=== PATIENT | female | born 1975 | race Caucasian/White ===

== ENCOUNTER → 2018-06-08 | Outpatient (CLI) | payer BC ==
--- NOTE | 2018-06-08 13:36 | RADIOLOGY REPORT (SQ) ---
EXAM DESCRIPTION: CHEST PA/LATERAL COMPLETED DATE/TIME: 06/08/2018 12:05 pm REASON FOR STUDY: COUGH COMPARISON: None. NUMBER OF VIEWS: Two view. TECHNIQUE: Frontal and lateral radiographic views of the chest acquired. LIMITATIONS: None. FINDINGS: LUNGS AND PLEURA: Hyperinflation. Minimal interstitial change that could be related to C OPD. Lungs otherwise clear. MEDIASTINUM AND HILAR STRUCTURES: No masses or contour abnormalities. HEART AND VASCULATURE: Heart normal size. No evidence for failure. BONY STRUCTURES: No acute findings. HARDWARE: None. OTHER: No other significant finding. IMPRESSION: COPD. Minimal probably chronic interstitial change. TECHNICAL DOCUMENTATION: JOB ID: [id number] [employer]- All Rights Reserved Reading location - IP/workstation name: [email or web address]
== END ==
LOC: OD 11:53
PROVIDERS: ATTEND Nurse Practitioner Family
DX: J44.9 Chronic obstructive pulmonary disease, unspecified (principal); R05 Cough
CPT/HCPCS: 71046

== ENCOUNTER → 2018-12-20 | Outpatient (CLI) | payer BC ==
--- NOTE | 2018-12-20 16:22 | WOMENS IMAGING REPORT ---
EXAM DESCRIPTION: BILAT SCREENING MAMMO W/CAD COMPLETED DATE/TIME: 12/20/2018 3:42 pm REASON FOR STUDY: Z12.31 SCREENING UJAEOB23.31 ENCNTR SCREEN MAMMOGRAM FOR MALIGNANT NEOPLASM OF BR E COMPARISON: Bilateral mammograms 07/07/2017, Kel Gusman (maiden name Katie Siddiqui) EXAM PARAMETERS: Standard craniocaudal and mediolateral oblique views of each breast recorded using digital acquisition. Read with the assistance of CAD. [facility] - [employer] Version 9.2 LIMITATIONS: None. FINDINGS: RIGHT BREAST MASSES: Nodule versus superimposed shadows right breast upper outer quadrant 7 to 8 cm from the nippl e. This requires further evaluation with cone compression views, 90 mediolateral view, and right br east ultrasound. CALCIFICATIONS: No new or suspicious calcifications. ARCHITECTURAL DISTORTION: None. DEVELOPING DENSITY: None. ASYMMETRY: None noted. OTHER: No other significant findings. LEFT BREAST MASSES: No suspicious masses. CALCIFICATIONS: No new or suspicious calcifications. ARCHITECTURAL DISTORTION: None. DEVELOPING DENSITY: None. ASYMMETRY: None noted. OTHER: No other significant findings. IMPRESSION: Nodule versus superimposed shadows upper outer quadrant right breast for which additiona l diagnostic mammograms and ultrasound are recommended. No mammographic evidence for malignancy left breast. 0 Incomplete: Needs Additional Imaging Evaluation and/or prior Mammograms for Comparison. BREAST DENSITY: c. The breasts are heterogeneously dense, which may obscure small masses. BIRAD: ASSESSMENT: 0 Incomplete: Needs Additional Imaging Evaluation and/or prior Mammograms for C omparison. RECOMMENDATION: RECOMMENDED FOLLOW-UP: Additional right breast diagnostic mammograms and ultrasound The patient will be contacted for additional imaging. COMMENT: The patient has been notified of the results by letter per MQSA requirements. Additional no tification policies are in place for contacting patient with suspicious or incomplete findings. Quality ID #225: The [employer] recommends an annual screening mammogram for women aged 40 years or over. This facility utilizes a reminder system to ensure that all patients receive reminder letters, and/or direct phone calls for appointments. This includes reminders for routine scr eening mammograms, diagnostic mammograms, or other Breast Imaging Interventions when appropriate. Th is patient will be placed in the appropriate reminder system. TECHNICAL DOCUMENTATION: FINDING NUMBER: (1) ASSESSMENT: (1) JOB ID: [id number] [employer]- All Rights Reserved Reading location - IP/workstation name: [email or web address]
== END ==
LOC: WI 15:27
PROVIDERS: ATTEND Nurse Practitioner Family
DX: Z12.31 Encounter for screening mammogram for malignant neoplasm of breast (principal); R92.2 Inconclusive mammogram
CPT/HCPCS: 77067

== ENCOUNTER → 2019-01-04 | Outpatient (CLI) | payer BC ==
--- NOTE | 2019-01-04 13:33 | WOMENS IMAGING REPORT ---
EXAM DESCRIPTION: RIGHT DIAGNOSTIC MAMMO W/CAD; U/S BREAST UNILAT LIMITED COMPLETED DATE/TIME: 01/04/2019 8:32 am; 01/04/2019 8:49 am REASON FOR STUDY: N63.11 UNSPECIFIED LUMP IN THE RIGHT BREAST, UPPER OUTER QUADRANT; RT BREAST DENSI TY N63.11 UNSPECIFIED LUMP IN THE RIGHT BREAST, UPPER OUTER VINCE COMPARISON: 12/20/2018 EXAM PARAMETERS: Cone compression craniocaudal and mediolateral oblique images of the breast recorde d with digital acquisition. Right whole breast 90 mediolateral view. Right breast ultrasound was also performed. Read with the assistance of CAD. .[facility] - R2 [employer] Version 9.2 LIMITATIONS: None. FINDINGS: BREAST LATERALITY: Right MASSES: No suspicious masses. CALCIFICATIONS: No new or suspicious calcifications. ARCHITECTURAL DISTORTION: None. DEVELOPING DENSITY: None. ASYMMETRY: None noted. OTHER: No other significant findings. Right breast ultrasound: Ultrasound of the right breast upper outer quadrant was performed in the upper outer quadrant. Benig n dense fibroglandular tissue is present without discrete cystic or solid lesion. No dilated ducts. No worrisome acoustic absorption. No focal findings. IMPRESSION: No mammographic or sonographic evidence malignancy right breast BREAST DENSITY: d. The breasts are extremely dense, which lowers the sensitivity of mammography. BIRAD: ASSESSMENT: 1 Negative. RECOMMENDATION: RECOMMENDED FOLLOW UP: Please continue yearly bilateral screening mammography/ tomos ynthesis in January 2020. SPECIFIC INTERVENTION/IMAGING/CONSULTATION RECOMMENDED:No additional intervention/ imaging/consultati on needed at this time. COMMUNICATION:The negative/benign results were communicated to the patient. COMMENT: The patient has been notified of the results by letter per MQSA requirements. Additional no tification policies are in place for contacting patient with suspicious or incomplete findings. Quality ID #225: The [employer] recommends an annual screening mammogram for women aged 40 years or over. This facility utilizes a reminder system to ensure that all patients receive reminder letters, and/or direct phone calls for appointments. This includes reminders for routine scr eening mammograms, diagnostic mammograms, or other Breast Imaging Interventions when appropriate. Th is patient will be placed in the appropriate reminder system. TECHNICAL DOCUMENTATION: FINDING NUMBER: (1) ASSESSMENT: (1) JOB ID: [id number] [employer]- All Rights Reserved Reading location - IP/workstation name: [email or web address], [facility]-
--- NOTE | 2019-01-04 13:33 | WOMENS IMAGING REPORT ---
EXAM DESCRIPTION: RIGHT DIAGNOSTIC MAMMO W/CAD; U/S BREAST UNILAT LIMITED COMPLETED DATE/TIME: 01/04/2019 8:32 am; 01/04/2019 8:49 am REASON FOR STUDY: N63.11 UNSPECIFIED LUMP IN THE RIGHT BREAST, UPPER OUTER QUADRANT; RT BREAST DENSI TY N63.11 UNSPECIFIED LUMP IN THE RIGHT BREAST, UPPER OUTER VINCE COMPARISON: 12/20/2018 EXAM PARAMETERS: Cone compression craniocaudal and mediolateral oblique images of the breast recorde d with digital acquisition. Right whole breast 90 mediolateral view. Right breast ultrasound was also performed. Read with the assistance of CAD. .[facility] - R2 Program Checker Version 9.2 LIMITATIONS: None. FINDINGS: BREAST LATERALITY: Right MASSES: No suspicious masses. CALCIFICATIONS: No new or suspicious calcifications. ARCHITECTURAL DISTORTION: None. DEVELOPING DENSITY: None. ASYMMETRY: None noted. OTHER: No other significant findings. Right breast ultrasound: Ultrasound of the right breast upper outer quadrant was performed in the upper outer quadrant. Benig n dense fibroglandular tissue is present without discrete cystic or solid lesion. No dilated ducts. No worrisome acoustic absorption. No focal findings. IMPRESSION: No mammographic or sonographic evidence malignancy right breast BREAST DENSITY: d. The breasts are extremely dense, which lowers the sensitivity of mammography. BIRAD: ASSESSMENT: 1 Negative. RECOMMENDATION: RECOMMENDED FOLLOW UP: Please continue yearly bilateral screening mammography/ tomos ynthesis in January 2020. SPECIFIC INTERVENTION/IMAGING/CONSULTATION RECOMMENDED:No additional intervention/ imaging/consultati on needed at this time. COMMUNICATION:The negative/benign results were communicated to the patient. COMMENT: The patient has been notified of the results by letter per MQSA requirements. Additional no tification policies are in place for contacting patient with suspicious or incomplete findings. Quality ID #225: The [employer] recommends an annual screening mammogram for women aged 40 years or over. This facility utilizes a reminder system to ensure that all patients receive reminder letters, and/or direct phone calls for appointments. This includes reminders for routine scr eening mammograms, diagnostic mammograms, or other Breast Imaging Interventions when appropriate. Th is patient will be placed in the appropriate reminder system. TECHNICAL DOCUMENTATION: FINDING NUMBER: (1) ASSESSMENT: (1) JOB ID: [id number] [employer]- All Rights Reserved Reading location - IP/workstation name: [email or web address]-
== END ==
LOC: WI 07:52
PROVIDERS: ATTEND Nurse Practitioner Family
DX: N63.11 Unspecified lump in the right breast, upper outer quadrant (principal)
CPT/HCPCS: 76642

== ENCOUNTER → 2019-03-26 | Outpatient (CLI) | payer BC ==
--- NOTE | 2019-03-26 16:05 | RADIOLOGY REPORT (SQ) ---
EXAM DESCRIPTION: U/S NON-OB PELVIS TV W/O DOP COMPLETED DATE/TIME: 03/26/2019 3:45 pm REASON FOR STUDY: R10.2 PELVIC AND PERINEAL PAIN R10.2 PELVIC AND PERINEAL PAIN COMPARISON: None. TECHNIQUE: Dynamic and static grayscale images acquired of the pelvis via transvaginal approach and recorded on PACS. Additional selected color Doppler and spectral images recorded. LIMITATIONS: None. FINDINGS: UTERUS: Contour normal. No mass. ENDOMETRIAL STRIPE: No focal or generalized thickening. No masses. CERVIX: 2.2 cm. No nabothian cysts. RIGHT OVARY AND DOPPLER: Normal size. No worrisome masses. Normal arterial vascular flow without evid ence for torsion. LEFT OVARY AND DOPPLER: Normal size. No worrisome masses. Normal arterial vascular flow without evide nce for torsion. FREE FLUID: None noted. OTHER: No other significant finding. MEASUREMENTS: UTERUS: 8.9 x 6.1 x 4.5 cm. ENDOMETRIAL STRIPE: 8 mm. RIGHT OVARY: 1.6 x 1.1 x 1.9 cm. LEFT OVARY: 2.3 x 1.9 x 2.1 cm. IMPRESSION: NORMAL TRANSVAGINAL PELVIC ULTRASOUND. TECHNICAL DOCUMENTATION: JOB ID: [id number] [employer]- All Rights Reserved Rev-08/19 Reading location - IP/workstation name: [email or web address]
== END ==
LOC: RAD 15:15
PROVIDERS: ATTEND Nurse Practitioner Family
DX: R10.2 Pelvic and perineal pain (principal)
CPT/HCPCS: 76830

== ENCOUNTER 2019-06-15 07:15 | Day surgery (SDC) | payer BC ==
[2019-06-15] MEDS ORDERED: PROPOFOL INJ 200 MG/20 ML VIAL IV ONE (07:42)
[2019-06-15 09:54] VITALS: BP 109/62
--- NOTE | 2019-06-15 11:26 | Operative Report ---
Operative Report DATE OF SURGERY: 06/15/19 Operative Report: The risk, benefits and alternatives of the procedure including the risk of bleeding, perforation requiring surgery have been explained to the patient in detail and informed consent has been obtained. Patient is placed in a left, lateral decubital position. Timeout was called. Propofol medication is administered. Rectal examination is done which did not reveal any masses, tears or fissures. An Olympus videoscope was introduced into the patient's rectum. Scope was then carefully advanced all the way to the cecum. Cecum was identified by the usual anatomical landmarks including the ileocecal valve as well as the appendiceal office. Photodocumentation is obtained. Scope was then sequentially pulled back via the various segments of the colon including the ascending colon, back flexure, transverse colon, splenic flexure, descending colon finding to the rectosigmoid portions of the colon. Retroflexion maneuvers performed. PREOPERATIVE DIAGNOSIS: Change in bowel habits POSTOPERATIVE DIAGNOSIS: Right side colonInflammation status post biopsy. Internal hemorrhoids OPERATION: Colonoscopy with biopsy SURGEON: TONIA DAVIS ANESTHESIA: LMAC TISSUE REMOVED OR ALTERED: As noted above. COMPLICATIONS: None. ESTIMATED BLOOD LOSS: None. INTRAOPERATIVE FINDINGS: As noted above. PROCEDURE: Patient tolerated the procedure well. No immediate postprocedure complications are noted. Patient is discharged in good condition. Discharge date 06/15/2019. Discharge diet: Regular. Discharge activity: Regular. 2 to 3-week follow-up to discuss findings. Patient is instructed to call the office or proceed to the emergency room should there be any further problems or questions. Wait on the pathology.
== END 2019-06-15 09:57 | disposition home or self-care (01) ==
LOC: END 07:15
PROVIDERS: ATTEND Internal Medicine Gastroenterology
DX: K64.8 Other hemorrhoids (principal); K52.9 Noninfective gastroenteritis and colitis, unspecified; J44.9 Chronic obstructive pulmonary disease, unspecified; F17.210 Nicotine dependence, cigarettes, uncomplicated; E78.5 Hyperlipidemia, unspecified; Z79.899 Other long term (current) drug therapy; Z88.8 Allergy status to other drugs, medicaments and biological substances
CPT/HCPCS: 45380; 88305 ×2; 00811; J2704; 811

== ENCOUNTER 2019-09-20 08:57 | Day surgery (SDC) | payer BC ==
--- NOTE | 2019-09-17 11:59 | EKG REPORT ---
SEVERITY:- ABNORMAL ECG - SINUS RHYTHM ABNRM R PROG, CONSIDER ASMI OR LEAD PLACEMENT : Confirmed by: John Stevens MD 17-Sep-2019 11:58:53
[2019-09-17 12:27] LABS: HEMOGLOBIN 14.5 g/dL (12.0-15.5); MEAN CORPUSCULAR HEMOGLOBIN 29.7 pg (27.0-33.4); MEAN CORPUSCULAR HGB CONC 33.8 g/dL (32.0-36.0); MEAN CORPUSCULAR VOLUME 88 fl (80-97); PLATELET COUNT 350 10^3/uL (150-450); RED BLOOD COUNT 4.89 10^6/uL (3.72-5.28); RED CELL DISTRIBUTION WIDTH 14.9 % (11.5-14.0); WHITE BLOOD COUNT 7.8 10^3/uL (4.0-10.5)
[2019-09-17 12:32] LABS: APPEARANCE,URINE CLEAR; BILIRUBIN,URINE NEGATIVE (NEGATIVE); COLOR,URINE YELLOW; GLUCOSE, URINE NEGATIVE (NEGATIVE); KETONES,URINE NEGATIVE (NEGATIVE); LEUKOCYTE ESTERASE,URINE NEGATIVE (NEGATIVE); NITRITE,URINE NEGATIVE (NEGATIVE); PROTEIN,URINE NEGATIVE (NEGATIVE); URINE SPECIFIC GRAVITY 1.003; UROBILINOGEN,URINE NEGATIVE mg/dL (<2.0)
--- NOTE | 2019-09-17 12:48 | RADIOLOGY REPORT (SQ) ---
EXAM DESCRIPTION: CHEST PA/LATERAL IMAGES COMPLETED DATE/TIME: 09/17/2019 12:10 pm REASON FOR STUDY: PRE-OP N93.9 ABNORMAL UTERINE AND VAGINAL BLEEDING, UNSPECIFIED N92.6 IRREGULAR MENSTRUATION, UNSPECIFIED N85.00 ENDOMETRIAL HYPERPLASIA, UNSPECIFIED COMPARISON: 2018. NUMBER OF VIEWS: Two view. TECHNIQUE: Frontal and lateral radiographic views of the chest acquired. LIMITATIONS: None. FINDINGS: LUNGS AND PLEURA: No opacities, masses or pneumothorax. No pleural effusion. Attenuated bl ood vessels and flattened rizwana-diaphragms. MEDIASTINUM AND HILAR STRUCTURES: No masses. No contour abnormalities. HEART AND VASCULAR STRUCTURES: Heart normal in size and contour. No evidence for failure. BONES: No acute findings. HARDWARE: None in the chest. OTHER: No other significant finding. IMPRESSION: COPD. NO ACUTE RADIOGRAPHIC FINDING IN THE CHEST. TECHNICAL DOCUMENTATION: JOB ID: [id number] 2010 [employer]- All Rights Reserved Reading location - IP/workstation name: [email or web address]
[2019-09-17 12:56] LABS: ALBUMIN 4.5 g/dL (3.5-5.0); ALKALINE PHOSPHATASE 110 U/L (38-126); ANION GAP 9 (5-19); ASPARTATE AMINO TRANSFERASE 19 U/L (14-36); BILIRUBIN,TOTAL 0.4 mg/dL (0.2-1.3); BLOOD UREA NITROGEN 3 mg/dL (7-20); CALCIUM 9.8 mg/dL (8.4-10.2); CARBON DIOXIDE 26 mmol/L (22-30); CHLORIDE 102 mmol/L (98-107); GLUCOSE 93 mg/dL (75-110); POTASSIUM 3.9 mmol/L (3.6-5.0); TOTAL PROTEIN 7.5 g/dL (6.3-8.2)
[~2019-09-20 08:57] MED LIST: CEFAZOLIN 1 GM/D5W RTU 1 GM/50 ML RTUPB IV ONE; CEFAZOLIN 1 GM/D5W RTU 1 GM/50 ML RTUPB IV PRN; LACTATED RINGERS 1000 ML IV PRN; LIDOCAINE 0.5% INJ-PF (5 MG/ML) 50 ML SDV SUBCUT PRN
[2019-09-20] MEDS ORDERED: SUCCINYLCHOLINE CHLORIDE INJ 200 MG/10 ML VIAL ONE (09:36)
[2019-09-20] MEDS ORDERED: DEXAMETHASONE SOD PHOSPHATE INJ 4 MG/1 ML VIAL ONE (09:36)
[2019-09-20] MEDS ORDERED: GLYCOPYRROLATE 1 MG/5 ML VIAL ONE (09:36)
[2019-09-20] MEDS ORDERED: ONDANSETRON HCL INJ/PF 4 MG/2 ML SDV ONE (09:36)
[2019-09-20] MEDS ORDERED: NEOSTIGMINE METHYLSULFATE 10 MG/10 ML VIAL ONE (09:36)
[2019-09-20] MEDS ORDERED: ROCURONIUM BROMIDE INJ 50 MG/5 ML VIAL IV ONE (09:36)
[2019-09-20] MEDS ORDERED: FENTANYL CITRATE INJ/PF 250 MCG/5 ML AMPULE ONE (10:34)
[2019-09-20] MEDS ORDERED: MIDAZOLAM 2 MG/2 ML INJ ONE (10:34)
[2019-09-20] MEDS ORDERED: PROPOFOL INJ 200 MG/20 ML VIAL IV ONE (10:34)
[2019-09-20] MEDS ORDERED: OXYCODONE-ACETAMINOPHEN 5-325 MG TABLET PO PRN ×6 (10:38→12:52)
[2019-09-20] MEDS ORDERED: FENTANYL CITRATE INJ/PF 100 MCG/2 ML AMPUL IV PRN ×6 (10:38→11:26)
[2019-09-20] MEDS ORDERED: DIPHENHYDRAMINE HCL 50 MG/ML VIAL IV PRN ×2 (10:38→11:26)
[2019-09-20] MEDS ORDERED: PROMETHAZINE HCL INJ 25 MG/1 ML VIAL IV PRN ×5 (10:38→12:52)
[2019-09-20] MEDS ORDERED: MEPERIDINE HCL/PF INJ 25 MG/1 ML DISP.SYRIN IV PRN ×2 (10:38→11:26)
[2019-09-20] MEDS ORDERED: METHYLENE BLUE 50 MG/10 ML AMPULE ONE (10:53)
[2019-09-20] MEDS ORDERED: BUPIVACAINE HCL 0.25% /EPINEPHRINE INJ/PF 30 ML SDV ONE (10:54)
[2019-09-20] MEDS ORDERED: OXYTOCIN/0.9 % SODIUM CHLORIDE 30 UNIT/500 ML RTUINJ IV PRN (12:52)
[2019-09-20] MEDS ORDERED: MEASLES,MUMPS&RUBELLA VACC/PF 0.5 ML VIAL SUBCUT PRN (12:52)
[2019-09-20] MEDS ORDERED: RINGERS SOLUTION,LACTATED 1,000 ML IV PRN (12:52)
[2019-09-20] MEDS ORDERED: ACETAMINOPHEN 325 MG TABLET PO PRN (12:52)
[2019-09-20] MEDS ORDERED: DIPH/PERTUSS(ACELL)/TETANUS VAC/PF 0.5 ML SYR (>=10YO) IM PRN (12:52)
[2019-09-20] MEDS ORDERED: ACETAMINOPHEN 1,000 MG/100 ML RTUPB IV PRN (12:52)
[2019-09-20] MEDS ORDERED: MORPHINE SULFATE 10 MG/ML INJ IV PRN (12:52)
[2019-09-20] MEDS: MORPHINE SULFATE 10 MG/ML INJ ONE ×2 (13:00→13:05)
--- NOTE | 2019-09-20 13:13 | Operative Report ---
Operative Report DATE OF SURGERY: 09/20/19 PREOPERATIVE DIAGNOSIS: abnormal uterine bleeding, pelvic pain, endometriosis POSTOPERATIVE DIAGNOSIS: Same OPERATION: Laparoscopic-assisted vaginal hysterectomy SURGEON: BELGICA ORTIZ 1ST [employer] JOURNEYMAN: STEVE ELENA ANESTHESIA: GA TISSUE REMOVED OR ALTERED: Uterus cervix bilateral fallopian tubes COMPLICATIONS: None ESTIMATED BLOOD LOSS: 200 INTRAOPERATIVE FINDINGS: Fallopian tubes with evidence of previous tubal ligation normal uterus approximately 12-week size, evidence of clear endometriosis nodules on the right ovary PROCEDURE: She was taken to the operating room prepared and draped in a normal sterile fashion in a dorsal lithotomy position with Lyle stirrups. A Boyer catheter was placed to gravity under sterile conditions. A sterile speculum was placed in the vagina and the cervix was grasped on the anterior lip with a single-tooth tenaculum and a Hulka clamp was placed through the cervical canal for uterine manipulation without difficulty. Sterile speculum was removed as well as the surgeons gloves were changed and attention was turned to the upper portion of the case. An umbilical skin incision was made to accommodate a 5 mm laparoscopic port. The peritoneal cavity was entered sharply with a varies needle and confirmation of peritoneal cavity entry was made with free-flowing sterile water through the needle. Abdomen was then inflated with approximately 2 L of CO2 gas. The varies needle was removed and the 5 mm port was placed through this incision without difficulty. That was then introduced and the above findings were noticed as the patient was placed in steep Trendelenburg. Under direct visualization 2 5 mm ports were placed on either side of the umbilicus approximately 10 cm from the umbilicus. A blunt probe was used to sweep away the bowel. Beginning with the right adnexa the fallopian tube segment was removed using the LigaSure. the fallopian tube was placed in the posterior culdesac for vaginal removal. The right round ligament was divided again using the LigaSure and the uterine Arteries were skeletonized using the LigaSure and some blunt dissection. We then turned our attention to the left portion of the adnexa and the left fallopian tube was noted and ligated with the LigaSure. Again carried through the uterine artery dissection the LigaSure with good hemostasis maintained throughout. the bladder flap was completed using the Ligasure and blunt dissection. I then turn the ligasure to the right adnexa once more and removed the clear endometiosis nodules with the Ligasure. This was removed through the trocar. At this time attention was then turned to the vaginal part portion of the case. Abdomen was deflated and the camera and instruments were removed from the abdomen we then placed a short weighted speculum into the vagina the single-tooth tenaculum was removed. The cervix was then grasped with toothed triple tooth Kenna's and was injected circumferentially with 10 cc of bupivacaine with epi. The cervix was then scored in a circumferential fashion and the mucosa was dissected away from the lower uterine segment and cervix with sharp dissection using the Menjivar scissors. The posterior cul-de-sac was entered sharply using the Mayos and a long weighted speculum replaced the short weighted speculum. the fallopian tube segments were located and one was successsfully removed at this time. We then turned our attention to entering the anterior cul-de-sac which was completed and a [place] blade was placed into this defect to hold the bladder away. Uterus sacral ligaments were then clamped and cut on both sides using 0 Vicryl. The uterine arteries were then transected and ligated using a clamp and cut technique with the laura clamp and 0-vicryl ties. the specimen was completely freed. The specimen was then removed and passed off the field. The vaginal cuff was then closed with 0 Vicryl runner. . Good hemostasis was noted . Abdomen was then reinflated and the camera was introduced through the umbilical port for another look the patient was placed into Trendelenburg once more. The cuff was carefully inspected and found to be hemostatic. The abdomen was carefully suction irrigated. With evidence of hydroureter. No evidence of of bleeding. The remaining fallopian tube was located and removed through the left trocar . the case was then concluded and the abdomen was deflated through the umbilical port. ports were removed. The skin was closed at all 3 sites using 4-0 Vicryl. patient tolerated procedure well sponge lap and needle counts were correct x2 and the patient was taken recovery in stable condition.
[2019-09-20] MEDS ORDERED: MEPERIDINE HCL/PF INJ 25 MG/1 ML DISP.SYRIN ONE (13:20)
[2019-09-20] MEDS ORDERED: AMPICILLIN SOD/SULBACTAM 3 GM VIAL IV SCH (14:00)
[2019-09-20] MEDS ORDERED: AMPICILLIN SODIUM/SULBACTAM NA 3 GM in NORMAL SALINE 100 ML IV SCH (14:00)
[2019-09-20] MEDS: KETOROLAC TROMETHAMINE INJ/PF 30 MG/1 ML SDV IV SCH ×2 (15:07→21:18)
[2019-09-20] MEDS ORDERED: DOCUSATE SODIUM 100 MG CAPSULE PO SCH (18:00)
[2019-09-20] MEDS: AMPICILLIN SODIUM/SULBACTAM NA 3 GM in NORMAL SALINE 100 ML IV SCH (18:29)
[2019-09-20] MEDS: SIMETHICONE 80 MG TAB.CHEW PO PRN (22:11)
[2019-09-21] MEDS: AMPICILLIN SODIUM/SULBACTAM NA 3 GM in NORMAL SALINE 100 ML IV SCH (01:23)
[2019-09-21] MEDS: KETOROLAC TROMETHAMINE INJ/PF 30 MG/1 ML SDV IV SCH (05:34)
[2019-09-21] MEDS: SIMETHICONE 80 MG TAB.CHEW PO PRN (05:49)
--- NOTE | 2019-09-21 08:01 | PDOC DISCHARGE SUMMARY ---
Impression - Admit/DC Date/PCP Admission Date/Primary Care Provider: GWYN BONILLA Discharge Date: 09/21/19 - Discharge Diagnosis (1) Abnormal uterine bleeding Is this a current diagnosis for this admission?: Yes (2) Pelvic pain Is this a current diagnosis for this admission?: Yes (3) Endometriosis determined by laparoscopy Is this a current diagnosis for this admission?: Yes - Assessment Summary: patient admitted for laparoscopic assisted vaginal hysterectomy. performed without difficulty. patient has done well with a normal postoperative course. is voiding and tolerating a regular diet. - Additional Information Resuscitation Status: Full Code Discharge Diet: As Tolerated Discharge Activity: Balance Activity w/Rest, No Lifting Over 10 Pounds, No Lifting/Push/Pulling, Pelvic Rest, No tub bath Referrals: CHRISTINA ORNELAS FNP-C [Primary Care Provider] - Prescriptions: Oxycodone HCl/Acetaminophen [Percocet 5-325 mg Tablet] 1 tab PO Q4HP PRN #30 tablet PRN Reason: Sulfamethoxazole/Trimethoprim [Bactrim Ds Tablet] 1 each PO BID 10 Days #20 tablet Ibuprofen [Motrin 800 mg Tablet] 800 mg PO Q6 #60 tablet Home Medications: Albuterol Sulfate [Proair HFA Inhalation Aerosol 8.5 gm MDI] 90 mcg .ROUTE DAILY 06/14/19 Fexofenadine HCl [Rayna Allergy] 180 mg PO DAILY 06/14/19 Fluticasone/Umeclidin/Vilanter [Trelegy 100-62.5-25 Mcg Ellipta 14 Dose/Dpi] 1 puff .ROUTE DAILY 06/14/19 Omeprazole 20 mg PO DAILY 06/14/19 Ibuprofen [Motrin 800 mg Tablet] 800 mg PO Q6 #60 tablet 09/21/19 Oxycodone HCl/Acetaminophen [Percocet 5-325 mg Tablet] 1 tab PO Q4HP PRN #30 tablet 09/21/19 Sulfamethoxazole/Trimethoprim [Bactrim Ds Tablet] 1 each PO BID 10 Days #20 tablet 09/21/19 Additional Information: follow up as scheduled in the office in 2 weeks History of Present Illiness History of Present Illness: IDANIA PARKER is a 44 year old female Physical Exam - Physical Exam Vital Signs: Temp Pulse Resp BP Pulse Ox 97.4 F 62 16 110/68 94 09/21/19 00:00 09/21/19 03:24 09/21/19 03:24 09/21/19 03:24 09/21/19 03:24 Intake & Output 09/20/19 09/21/19 09/22/19 06:59 06:59 06:59 Intake Total 5050 Output Total 1750 Balance 3300 Weight 69.853 kg Results Laboratory Results: WBC 7.8 10^3/uL (4.0-10.5) 09/17/19 11:40 RBC 4.89 10^6/uL (3.72-5.28) 09/17/19 11:40 Hgb 14.5 g/dL (12.0-15.5) 09/17/19 11:40 Hct 43.0 % (36.0-47.0) 09/17/19 11:40 MCV 88 fl (80-97) 09/17/19 11:40 MCH 29.7 pg (27.0-33.4) 09/17/19 11:40 MCHC 33.8 g/dL (32.0-36.0) 09/17/19 11:40 RDW 14.9 % (11.5-14.0) H 09/17/19 11:40 Plt Count 350 10^3/uL (150-450) 09/17/19 11:40 Sodium 137.1 mmol/L (137-145) 09/17/19 11:40 Potassium 3.9 mmol/L (3.6-5.0) 09/17/19 11:40 Chloride 102 mmol/L (98-107) 09/17/19 11:40 Carbon Dioxide 26 mmol/L (22-30) 09/17/19 11:40 Anion Gap 9 (5-19) 09/17/19 11:40 BUN 3 mg/dL (7-20) L 09/17/19 11:40 Creatinine 0.53 mg/dL (0.52-1.25) 09/17/19 11:40 Est GFR ( Amer) > 60 (>60) 09/17/19 11:40 Est GFR (MDRD) Non-Af > 60 (>60) 09/17/19 11:40 Glucose 93 mg/dL (75-110) 09/17/19 11:40 Calcium 9.8 mg/dL (8.4-10.2) 09/17/19 11:40 Total Bilirubin 0.4 mg/dL (0.2-1.3) 09/17/19 11:40 Direct Bilirubin 0.0 mg/dL (0.0-0.4) 09/17/19 11:40 Neonat Total Bilirubin Not Reportable 09/17/19 11:40 Neonat Direct Bilirubin Not Reportable 09/17/19 11:40 Neonat Indirect Bili Not Reportable 09/17/19 11:40 AST 19 U/L (14-36) 09/17/19 11:40 ALT 13 U/L (<35) 09/17/19 11:40 Alkaline Phosphatase 110 U/L (38-126) 09/17/19 11:40 Total Protein 7.5 g/dL (6.3-8.2) 09/17/19 11:40 Albumin 4.5 g/dL (3.5-5.0) 09/17/19 11:40 Urine Color YELLOW 09/17/19 11:28 Urine Appearance CLEAR 09/17/19 11:28 Urine pH 7.0 (5.0-9.0) 09/17/19 11:28 Ur Specific [place] 1.003 09/17/19 11:28 Urine Protein NEGATIVE mg/dL (NEGATIVE) 09/17/19 11:28 Urine Glucose (UA) NEGATIVE mg/dL (NEGATIVE) 09/17/19 11:28 Urine Ketones NEGATIVE mg/dL (NEGATIVE) 09/17/19 11:28 Urine Blood LARGE (NEGATIVE) H 09/17/19 11:28 Urine Nitrite NEGATIVE (NEGATIVE) 09/17/19 11:28 Urine Bilirubin NEGATIVE (NEGATIVE) 09/17/19 11:28 Urine Urobilinogen NEGATIVE mg/dL (<2.0) 09/17/19 11:28 Ur Leukocyte Esterase NEGATIVE (NEGATIVE) 09/17/19 11:28 Urine WBC (Auto) 1 /HPF 09/17/19 11:28 Urine RBC (Auto) 1 /HPF 09/17/19 11:28 Urine Bacteria (Auto) TRACE /HPF 09/17/19 11:28 Squamous Epi Cells Auto 3 /HPF 09/17/19 11:28 Urine Mucus (Auto) RARE /LPF 09/17/19 11:28 Urine Ascorbic Acid NEGATIVE (NEGATIVE) 09/17/19 11:28 Urine HCG, Qual NEGATIVE (NEGATIVE) 09/20/19 09:10 COVID-19 Source NASOPHARYNGEAL 09/17/19 11:30 COVID-19 (ANGELIA) NOT DETECTED 09/17/19 11:30 Blood Type B POSITIVE 09/17/19 11:40 Antibody Screen NEGATIVE 09/17/19 11:40 Impressions: Chest X-Ray 09/17/19 11:50 IMPRESSION: COPD. NO ACUTE RADIOGRAPHIC FINDING IN THE CHEST. Stroke Is this a Stroke Patient?: No Acute Heart Failure - Is this a Heart Failure Patient?: No
[2019-09-21 08:19] VITALS: BP 108/80
[2019-09-21] MEDS ORDERED: IBUPROFEN 800 MG TABLET PO SCH (12:00)
== END 2019-09-21 09:00 | disposition home or self-care (01) ==
LOC: OROUT 08:57 → 2N 14:20 → OROUT 09-21 09:00
PROVIDERS: ATTEND Obstetrics & Gynecology
DX: N93.9 Abnormal uterine and vaginal bleeding, unspecified (principal); R10.2 Pelvic and perineal pain; N80.1 Endometriosis of ovary; N83.8 Other noninflammatory disorders of ovary, fallopian tube and broad ligament; Z03.818 Encounter for observation for suspected exposure to other biological agents ruled out; N92.6 Irregular menstruation, unspecified
CPT/HCPCS: 93005; 86900; 86901; 36415; 86850; 85027; 87635; 81025; 80053; 81001; 88307 ×2; 71046; 94799; 93010; 00840; 58552; J2250; J3490 ×3; J0690; J1100; J3010; J0295 ×2; J2175; J1885 ×2; J2270; J2710; J0330; J2405; J7050 ×2; J7120; J2704; C9803; 840; Q9968